=== PATIENT | female | born 1955 | race Caucasian/White ===

== ENCOUNTER 2016-07-26 01:20 | Inpatient (IN) | payer OTHER ==
[~2016-07-26] VITALS: Ht 160 cm; Wt 68.7 kg
[2016-07-26] VITALS (10 sets, daily range): BP systolic 89–127; BP diastolic 50–74; PULSE 69–93; RESP 16–20; TEMP 97.9–98.7; O2SAT 96–100
[2016-07-26] MEDS ORDERED: ASPI81CH37 CHEW (01:35)
[2016-07-26] MEDS ORDERED: PREV30CA11 PO (01:35)
[2016-07-26] MEDS ORDERED: LEXA20TA PO (01:35)
--- NOTE | 2016-07-26 01:42 | PD ---
HPI Chief Complaint: Psychiatric Symptoms Time Seen by Provider: 01:26 Travel History International Travel<30 days: No Contact w/Intl Traveler<30days: No Traveled to known affect area: No History of Present Illness HPI The patient is a 60 year old female who presents to the [facility] emergency department with a history of intentionally overdosing on her husbands morphine approximately an hour and 15 minutes prior to arrival. The patient took 15 mL of the morphine sulfate syrup that was 100 mg per 5 mL. The patient at this time reports feeling relaxed. She denies any nausea or vomiting. She reports feeling itchy but has no rash. She denies taking any other medications in an attempt to overdose. She reports that she does drink usually 2 beers per day and did have her usual 2 beers earlier today. She reports that she had not been considering suicide prior to this evening, however she did this after a fight with her son. She reports that she has also been grieving recently over her had since in May. I review systems the patient does report having some recent increase in her palpitations related to paroxysmal atrial fibrillation. The patient denies any recent fevers, cough, congestion, neck pain, chest pain, shortness of breath, abdominal pain, vomiting, diarrhea, urinary symptoms, or neurologic symptoms. PFSH Past Medical History Narrative Medical The patient's past medical history is significant for paroxysmal atrial fibrillation, hiatal hernia, depression, acid reflux Atrial Fibrillation: Yes (medtronic loop monitor in place) Diminished Hearing: No Hiatal Hernia: Yes Immunizations Current: Yes Influenza Vaccination: Yes Menopausal: Yes : 6 Para: 3 Past Surgical History Narrative Surgical The patient's past surgical history is significant for bilateral shoulder surgery, bilateral sacroiliac joint pending, hysterectomy. Hysterectomy: Yes Social History Alcohol Use: Yes (2 beers per day) Tobacco Use: No Substance Use: No Allergies-Medications (Allergen,Severity, Reaction): Coded Allergies: No Known Allergies (Unverified , 07/26/16) Reported Meds & Prescriptions Reported Meds & Active Scripts Active Reported Prevacid (Lansoprazole) 30 Mg Capdr 30 Mg PO DAILY Aspirin Low Dose (Aspirin) 81 Mg Chew 162 Mg CHEW DAILY Lexapro (Escitalopram Oxalate) 20 Mg Tab 20 Mg PO DAILY Review of Systems Except as stated in HPI: all other systems reviewed are Neg General / Constitutional: No: Fever Eyes: No: Visual changes HENT: No: Headaches Cardiovascular: Positive: Palpitations, No: Chest Pain or Discomfort Respiratory: No: Shortness of Breath Gastrointestinal: No: Abdominal Pain Genitourinary: No: Dysuria Musculoskeletal: No: Pain Skin: No Rash Neurologic: Positive: Weakness (generalized weakness), No: Focal Abnormalities , Coordination Problem, Change in Mentation, Slurred Speech, Sensory Disturbance Psychiatric: Positive: Depression, Suicidal Ideations, Mood Disorder, Substance Abuse, No: Homicidal Ideation Endocrine: No: Polydipsia Hematologic/Lymphatic: No: Easy Bruising Physical Exam Narrative General: The patient is a well-developed well-nourished female in no acute distress. Head and Neck exam: Head is normocephalic atraumatic. Eyes: EOMI, pupils are equal round and reactive to light. The patient's pupils are 2 mm bilaterally. Nose: Midline septum with pink mucous membranes Mouth: Dentition unremarkable. Moist mucus membranes. Posterior oropharynx is not erythematous. No tonsillar hypertrophy. Uvula midline. Airway patent. Neck: No palpable lymphadenopathy. No nuchal rigidity. No thyromegaly. Cardiovascular: Regular rate and rhythm without murmurs, gallops, or rubs. Lungs: Clear to auscultation bilaterally. No wheezes, rhonchi, or rales. Abdomen: Soft, without tenderness to palpation in all 4 quadrants of the abdomen. No guarding, rebound, or rigidity. Normal bowel sounds are audible. Extremities: No clubbing, cyanosis, or edema. 2+ pulses in all 4 extremities. No calf tenderness on palpation. Back: No spinous process tenderness to palpation. No costovertebral angle tenderness to palpation. Neurologic Exam: Cranial nerves 2-12 were intact on exam. Strength is 5/5 in all 4 extremities. No sensory deficits noted. Skin Exam: No rash noted. Intact skin that is warm and dry. Data Data Last Documented VS Vital Signs Date Time Temp Pulse Resp B/P Pulse Ox O2 Delivery O2 Flow Rate FiO2 07/26/16 01:30 98.6 79 16 127/74 97 Room Air Orders Electrocardiogram (07/26/16 01:27) Complete Blood Count With Diff (07/26/16 01:27) Comprehensive Metabolic Panel (07/26/16 01:27) Prothrombin Time / Inr (Pt) (07/26/16 01:27) Act Partial Throm Time (Ptt) (07/26/16 01:27) Urinalysis - C+S If Indicated (07/26/16:27) Chest, Single Ap (07/26/16:27) Blood Glucose (07/26/16:27) Iv Access Insert/Monitor (07/26/16:27) Cath For Specimen (07/26/16:27) Ecg Monitoring (07/26/16:) Oximetry (07/26/16:27) Drug Screen, Random Urine (07/26/16:) Alcohol (Ethanol) (07/26/16:27) Salicylates (Aspirin) (07/26/16:27) Tylenol (Acetaminophen) (07/26/16:27) Psych Screen (07/26/16:) Sodium Chlor 0.9% 1000 Ml Inj (Ns 1000 M (07/26/16 03:15) Diphenhydramine (Benadryl) (07/26/16 03:15) Ice Chips (07/26/16 03:06) Admit Order (Ed Use Only) (07/26/16 03:36) Admit To Inpatient (07/26/16 ) Vital Signs (Adult) Q4H (07/26/16 03:36) Activity Oob With Assistance (07/26/16 03:36) Web Master / Telemetry .CONTINUOUS (07/26/16 03:36) Diet Npo (07/26/16 Breakfast) Sodium Chlor 0.9% 1000 Ml Inj (Ns 1000 M (07/26/16 03:36) Acetaminophen (Tylenol) (07/26/16 03:45) Ondansetron Inj (Zofran Inj) (07/26/16 03:45) Magnesium Hydroxide Liq (Milk Of Magnesi (07/26/16 03:45) Resp Oxygen Pb C Titrat 1-4 L (07/26/16 ) Scd Bilateral/Knee High BECKY.BID (07/26/16 03:36) Kit Bilateral/Knee High BECKY.QSHIFT (07/26/16 03:36) Naloxone Inj (Narcan Inj) (07/26/16 03:45) Inpatient Certification (07/26/16 ) Consult Psychiatry (07/26/16 ) Labs Laboratory Tests Test 07/26/16 07/26/16 01:40 02:25 White Blood Count 5.6 TH/MM3 Red Blood Count 4.03 MIL/MM3 Hemoglobin 12.8 GM/DL Hematocrit 37.2 % Mean Corpuscular Volume 92.4 FL Mean Corpuscular Hemoglobin 31.9 PG Mean Corpuscular Hemoglobin 34.5 % Concent Red Cell Distribution Width 13.5 % Platelet Count 352 TH/MM3 Mean Platelet Volume 8.1 FL Neutrophils (%) (Auto) 51.8 % Lymphocytes (%) (Auto) 39.1 % Monocytes (%) (Auto) 6.5 % Eosinophils (%) (Auto) 1.7 % Basophils (%) (Auto) 0.9 % Neutrophils # (Auto) 2.9 TH/MM3 Lymphocytes # (Auto) 2.2 TH/MM3 Monocytes # (Auto) 0.4 TH/MM3 Eosinophils # (Auto) 0.1 TH/MM3 Basophils # (Auto) 0.0 TH/MM3 CBC Comment DIFF FINAL Differential Comment Prothrombin Time 10.4 SEC Prothromb Time International 0.9 RATIO Ratio Activated Partial 23.8 SEC Thromboplast Time Sodium Level 142 MEQ/L Potassium Level 4.0 MEQ/L Chloride Level 105 MEQ/L Carbon Dioxide Level 24.5 MEQ/L Anion Gap 13 MEQ/L Blood Urea Nitrogen 8 MG/DL Creatinine 0.63 MG/DL Estimat Glomerular Filtration 96 ML/MIN Rate Random Glucose 102 MG/DL Calcium Level 8.8 MG/DL Total Bilirubin 0.2 MG/DL Aspartate Amino Transf 30 U/L (AST/SGOT) Alanine Aminotransferase 24 U/L (ALT/SGPT) Alkaline Phosphatase 68 U/L Total Protein 7.4 GM/DL Albumin 4.2 GM/DL Salicylates Level LESS THAN 1.7 MG/DL Acetaminophen Level LESS THAN 2.0 MCG/ML Ethyl Alcohol Level 61 MG/DL Urine Color COLORLESS Urine Turbidity CLEAR Urine pH 5.5 Urine Specific [place] 1.002 Urine Protein NEG mg/dL Urine Glucose (UA) NEG mg/dL Urine Ketones NEG mg/dL Urine Occult Blood TRACE Urine Nitrite NEG Urine Bilirubin NEG Urine Urobilinogen LESS THAN 2.0 MG/DL Urine Leukocyte Esterase NEG Urine RBC 1 /hpf Urine WBC LESS THAN 1 /hpf Urine Squamous Epithelial <1 /hpf Cells Microscopic Urinalysis Comment CULT NOT INDICATED Urine Opiates Screen POS Urine Barbiturates Screen NEG Urine Amphetamines Screen NEG Urine Benzodiazepines Screen NEG Urine Cocaine Screen NEG Urine Cannabinoids Screen NEG MDM Medical Decision Making Medical Screen Exam Complete: Yes Emergency Medical Condition: Yes Medical Record Reviewed: Yes Interpretation(s) Laboratory Tests Test 07/26/16 07/26/16 01:40 02:25 White Blood Count 5.6 TH/MM3 Red Blood Count 4.03 MIL/MM3 Hemoglobin 12.8 GM/DL Hematocrit 37.2 % Mean Corpuscular Volume 92.4 FL Mean Corpuscular Hemoglobin 31.9 PG Mean Corpuscular Hemoglobin 34.5 % Concent Red Cell Distribution Width 13.5 % Platelet Count 352 TH/MM3 Mean Platelet Volume 8.1 FL Neutrophils (%) (Auto) 51.8 % Lymphocytes (%) (Auto) 39.1 % Monocytes (%) (Auto) 6.5 % Eosinophils (%) (Auto) 1.7 % Basophils (%) (Auto) 0.9 % Neutrophils # (Auto) 2.9 TH/MM3 Lymphocytes # (Auto) 2.2 TH/MM3 Monocytes # (Auto) 0.4 TH/MM3 Eosinophils # (Auto) 0.1 TH/MM3 Basophils # (Auto) 0.0 TH/MM3 CBC Comment DIFF FINAL Differential Comment Prothrombin Time 10.4 SEC Prothromb Time International 0.9 RATIO Ratio Activated Partial 23.8 SEC Thromboplast Time Sodium Level 142 MEQ/L Potassium Level 4.0 MEQ/L Chloride Level 105 MEQ/L Carbon Dioxide Level 24.5 MEQ/L Anion Gap 13 MEQ/L Blood Urea Nitrogen 8 MG/DL Creatinine 0.63 MG/DL Estimat Glomerular Filtration 96 ML/MIN Rate Random Glucose 102 MG/DL Calcium Level 8.8 MG/DL Total Bilirubin 0.2 MG/DL Aspartate Amino Transf 30 U/L (AST/SGOT) Alanine Aminotransferase 24 U/L (ALT/SGPT) Alkaline Phosphatase 68 U/L Total Protein 7.4 GM/DL Albumin 4.2 GM/DL Salicylates Level LESS THAN 1.7 MG/DL Acetaminophen Level LESS THAN 2.0 MCG/ML Ethyl Alcohol Level 61 MG/DL Urine Color COLORLESS Urine Turbidity CLEAR Urine pH 5.5 Urine Specific [place] 1.002 Urine Protein NEG mg/dL Urine Glucose (UA) NEG mg/dL Urine Ketones NEG mg/dL Urine Occult Blood TRACE Urine Nitrite NEG Urine Bilirubin NEG Urine Urobilinogen LESS THAN 2.0 MG/DL Urine Leukocyte Esterase NEG Urine RBC 1 /hpf Urine WBC LESS THAN 1 /hpf Urine Squamous Epithelial <1 /hpf Cells Microscopic Urinalysis Comment CULT NOT INDICATED Urine Opiates Screen POS Urine Barbiturates Screen NEG Urine Amphetamines Screen NEG Urine Benzodiazepines Screen NEG Urine Cocaine Screen NEG Urine Cannabinoids Screen NEG Last Impressions Chest X-Ray 07/26/16 0127 Signed Impressions: Service Date/Time: Tuesday, July 26, 2016 02:07 - CONCLUSION: Consolidation versus atelectasis in the medial left lung base. Marcelo Paulino MD Differential Diagnosis Suicide attempt, versus suicidal gesture, versus substance induced mood disorder , versus grief with suicidal ideations, versus depression Narrative Course During the course of the patients emergency department visit, the patients history, examination, and differential diagnosis were reviewed with the patient. The patient had IV access obtained and blood work sent for analysis. The patient was placed on a front desk monitor with oximetry and blood pressure monitoring. The patient's blood pressure systolic dropped to 84. The patient had an EKG done on arrival. The patient's EKG shows a sinus rhythm heart rate is 72, no acute ST segment changes, T waves are inverted in lead V1. The patient was provided normal saline 1 L IV fluid bolus. The patient was given Benadryl 25 mg by mouth 1 for itching. The patient was given ice chips. The patients laboratory studies were reviewed and remarkable for a CBC that is unremarkable. CMP within normal limits, PT 10.4, PTT 23.8, urinalysis shows trace occult blood, otherwise unremarkable, urinalysis screen is positive for opiates, salicylate less than 1.7, acetaminophen less than 2, alcohol 61. The patient's chest x-ray reveals atelectasis in the left lung base. The patient will be admitted to the intensive care unit for close monitoring regarding respiratory depression and hypotension. The patients results were discussed with the patient, including the plan of care. I explained that further testing and/ or monitoring is indicated based on the patients history, examination, and/ or laboratory findings. Therefore, I recommended admission for additional evaluation. The patient expressed understanding and was agreeable with this plan. The patient was admitted to the hospital in guarded condition and [facility] Physician Communication Physician Communication The patient's case was discussed with Dr. Bustillos who did agree to admit the patient for continued evaluation and treatment at this time. Diagnosis Primary Impression: Suicide attempt by drug ingestion Qualified Code: T50.902A - Suicide attempt by drug ingestion, initial encounter Additional Impression: Depression Qualified Code: F32.9 - Reactive depression Admitting Information Admitting Physician Requests: it Stephanie Young MD Jul 26, 2016 01:42
[2016-07-26 02:03] LABS: AUTOMATED NEUTROPHIL # 2.9 TH/MM3 (1.8-7.7); BASOPHIL % 0.9 % (0.0-2.0); EOSINOPHIL # 0.1 TH/MM3 (0-0.4); EOSINOPHIL % 1.7 % (0.0-4.0); HEMATOCRIT 37.2 % (35.0-46.0); HEMO FLAGS DIFF FINAL; LYMPH % 39.1 % (9.0-44.0); LYMPHOCYTE # 2.2 TH/MM3 (1.0-4.8); MEAN CELL VOLUME 92.4 FL (80.0-100.0); MEAN CORPUSCULAR HEMOGLOBIN 31.9 PG (27.0-34.0); MEAN CORPUSCULAR HGB CONC 34.5 % (32.0-36.0); MONO % 6.5 % (0.0-8.0); NEUT % 51.8 % (16.0-70.0); PLATELET COUNT 352 TH/MM3 (150-450); RED BLOOD COUNT 4.03 MIL/MM3 (4.00-5.30); RED CELL DISTRIBUTION WIDTH 13.5 % (11.6-17.2); WHITE BLOOD COUNT 5.6 TH/MM3 (4.0-11.0)
--- NOTE | 2016-07-26 02:18 | RADRPT ---
EXAM DATE/TIME: 07/26/2016 02:07 [place] COMPARISON: No previous studies available for comparison. INDICATIONS : Syncope. Weakness. MEDICAL HISTORY : None. SURGICAL HISTORY : None. ENCOUNTER: Initial ACUITY: 1 day PAIN SCORE: 6/10 LOCATION: Bilateral chest FINDINGS: Single AP view of the chest. Moderate-sized area of pulmonary consolidation versus atelectasis at the medial left lung base. Lungs are otherwise clear. No evidence of pleural effusion or pneumothorax. C ardiomediastinal silhouette within normal limits. CONCLUSION: Consolidation versus atelectasis in the medial left lung base. Marcelo Paulino MD on July 26, 2016 at 2:14 Board Certified Radiologist. This report was verified electronically.
[2016-07-26 02:20] LABS: APTT (PATIENT) 23.8 SEC (24.3-30.1); INTERNATIONAL NORMALIZED RATIO 0.9 RATIO; PROTHROMBIN TIME - PATIENT 10.4 SEC (9.8-11.6)
[2016-07-26 02:30] LABS: ALKALINE PHOSPHATASE 68 U/L (45-117); TOTAL BILIRUBIN ADULT 0.2 MG/DL (0.2-1.0)
[2016-07-26 02:32] LABS: ALT (GPT) 24 U/L (10-53); ANION GAP 13 MEQ/L (5-15); AST (GOT) 30 U/L (15-37); BICARBONATE 24.5 MEQ/L (21.0-32.0); BLOOD UREA NITROGEN 8 MG/DL (7-18); CHLORIDE 105 MEQ/L (98-107); GLOMERULAR FILTRATION RATE 96 ML/MIN (>89); SODIUM (NA) 142 MEQ/L (136-145)
[2016-07-26 02:38] LABS: ACETAMINOPHEN LESS THAN 2.0 MCG/ML (10.0-30.0)
[2016-07-26 02:47] LABS: BLOOD, URINE TRACE (NEG); GLUCOSE,URINE NEG (NEG); KETONE, URINE NEG (NEG); NITRITE,URINE NEG (NEG); PH, URINE 5.5 (5.0-8.5); SQUAMOUS EPITHELIAL CELL URINE <1 /hpf (0-5); URINE COLOR COLORLESS (YELLW/STRAW)
[2016-07-26 02:48] LABS: COMMENT (UR) CULT NOT INDICATED; CULTURE IF INDICATED CULT NOT INDICATED
[2016-07-26 02:54] LABS: AMPHETAMINE, URINE NEG (NEG); BARBITURATES, URINE NEG (NEG); COCAINE, URINE NEG (NEG)
[2016-07-26] MEDS ORDERED: diphenhydrAMINE HCL 25 MG CAP PO ONE (03:15)
[2016-07-26] MEDS ORDERED: SODIUM CHLOR 0.9% 1000 ML INJ 1,000 ML IV ONE (03:15)
[2016-07-26] MEDS ORDERED: SODIUM CHLOR 0.9% 1000 ML INJ 1,000 ML IV SCH (03:36)
[2016-07-26] MEDS ORDERED: ACETAMINOPHEN 325 MG TAB PO PRN (03:45)
[2016-07-26] MEDS ORDERED: ONDANSETRON HCL 4 MG/2 ML VIAL IVP PRN (03:45)
[2016-07-26] MEDS ORDERED: NALOXONE HCL 0.4 MG/ML AMP IV PRN (03:45)
[2016-07-26] MEDS ORDERED: MAGNESIUM HYDROXIDE SUSP 30 ML CUP PO PRN (03:45)
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
[2016-07-26] MEDS ORDERED: ESCITALOPRAM OXALATE 20 MG TAB PO SCH (17:00)
--- NOTE | 2016-07-26 18:01 | HHI.HP ---
[facility] Service [facility] Primary Care Physician Laine Swenson M.D. Admission Diagnosis Morphine overdose, Suicide Attempt, [place]ino Act Diagnoses: Travel History International Travel<30 Days: No Contact w/Intl Traveler <30 Da: No Traveled to Known Affected Are: No Past Family Social History Allergies: Coded Allergies: No Known Allergies (Unverified , 07/26/16) Physical Exam Vital Signs Vital Signs Date Time Temp Pulse Resp B/P Pulse Ox O2 Delivery O2 Flow Rate FiO2 07/26/16 08:31 96 Nasal Cannula 2.00 07/26/16 08:00 97.9 77 18 101/57 100 07/26/16 06:05 98.6 83 16 116/69 100 07/26/16 06:00 93 07/26/16 03:45 16 07/26/16 03:44 69 16 90/69 96 07/26/16 01:30 98.6 79 16 127/74 97 Room Air Laboratory Laboratory Tests Test 07/26/16 07/26/16 07/26/16 01:40 02:25 06:05 White Blood Count 5.6 Red Blood Count 4.03 Hemoglobin 12.8 Hematocrit 37.2 Mean Corpuscular Volume 92.4 Mean Corpuscular Hemoglobin 31.9 Mean Corpuscular Hemoglobin 34.5 Concent Red Cell Distribution Width 13.5 Platelet Count 352 Mean Platelet Volume 8.1 Neutrophils (%) (Auto) 51.8 Lymphocytes (%) (Auto) 39.1 Monocytes (%) (Auto) 6.5 Eosinophils (%) (Auto) 1.7 Basophils (%) (Auto) 0.9 Neutrophils # (Auto) 2.9 Lymphocytes # (Auto) 2.2 Monocytes # (Auto) 0.4 Eosinophils # (Auto) 0.1 Basophils # (Auto) 0.0 CBC Comment DIFF FINAL Differential Comment Prothrombin Time 10.4 Prothromb Time International 0.9 Ratio Activated Partial 23.8 Thromboplast Time Sodium Level 142 Potassium Level 4.0 Chloride Level 105 Carbon Dioxide Level 24.5 Anion Gap 13 Blood Urea Nitrogen 8 Creatinine 0.63 Estimat Glomerular Filtration 96 Rate Random Glucose 102 Calcium Level 8.8 Total Bilirubin 0.2 Aspartate Amino Transf 30 (AST/SGOT) Alanine Aminotransferase 24 (ALT/SGPT) Alkaline Phosphatase 68 Total Protein 7.4 Albumin 4.2 Salicylates Level LESS THAN 1.7 Acetaminophen Level LESS THAN 2.0 Ethyl Alcohol Level 61 Urine Color COLORLESS Urine Turbidity CLEAR Urine pH 5.5 Urine Specific [place] 1.002 Urine Protein NEG Urine Glucose (UA) NEG Urine Ketones NEG Urine Occult Blood TRACE Urine Nitrite NEG Urine Bilirubin NEG Urine Urobilinogen LESS THAN 2.0 Urine Leukocyte Esterase NEG Urine RBC 1 Urine WBC LESS THAN 1 Urine Squamous Epithelial <1 Cells Microscopic Urinalysis Comment CULT NOT INDICATED Urine Opiates Screen POS Urine Barbiturates Screen NEG Urine Amphetamines Screen NEG Urine Benzodiazepines Screen NEG Urine Cocaine Screen NEG Urine Cannabinoids Screen NEG Nasal Screen MRSA (PCR) NEGATIVE Result Diagram: 07/26/16 0140 07/26/16 0140 Assessment and Plan Assessment and Plan dictated, [id number] Raquel Trivedi Jul 26, 2016 18:01
--- NOTE | 2016-07-26 18:38 | HHI.PR ---
Objective Objective Results - Vital Signs Date Time Temp Pulse Resp B/P Pulse Ox O2 Delivery O2 Flow Rate FiO2 07/26/16 08:31 96 Nasal Cannula 2.00 07/26/16 08:00 97.9 77 18 101/57 100 07/26/16 06:05 98.6 83 16 116/69 100 07/26/16 06:00 93 07/26/16 03:45 16 07/26/16 03:44 69 16 90/69 96 07/26/16 01:30 98.6 79 16 127/74 97 Room Air I/O 07/25/16 07/25/16 07/25/16 07/26/16 07/26/16 07/26/16 07:00 15:00 23:00 07:00 15:00 23:00 Intake Total 0 ml Output Total 0 ml Balance 0 ml Intake Oral 0 ml Output Urine Total 0 ml Result Diagram: 07/26/16 0140 07/26/16 0140 Other Results Laboratory Tests Test 07/26/16 07/26/16 07/26/16 01:40 02:25 06:05 White Blood Count 5.6 Red Blood Count 4.03 Hemoglobin 12.8 Hematocrit 37.2 Mean Corpuscular Volume 92.4 Mean Corpuscular Hemoglobin 31.9 Mean Corpuscular Hemoglobin 34.5 Concent Red Cell Distribution Width 13.5 Platelet Count 352 Mean Platelet Volume 8.1 Neutrophils (%) (Auto) 51.8 Lymphocytes (%) (Auto) 39.1 Monocytes (%) (Auto) 6.5 Eosinophils (%) (Auto) 1.7 Basophils (%) (Auto) 0.9 Neutrophils # (Auto) 2.9 Lymphocytes # (Auto) 2.2 Monocytes # (Auto) 0.4 Eosinophils # (Auto) 0.1 Basophils # (Auto) 0.0 CBC Comment DIFF FINAL Differential Comment Prothrombin Time 10.4 Prothromb Time International 0.9 Ratio Activated Partial 23.8 Thromboplast Time Sodium Level 142 Potassium Level 4.0 Chloride Level 105 Carbon Dioxide Level 24.5 Anion Gap 13 Blood Urea Nitrogen 8 Creatinine 0.63 Estimat Glomerular Filtration 96 Rate Random Glucose 102 Calcium Level 8.8 Total Bilirubin 0.2 Aspartate Amino Transf 30 (AST/SGOT) Alanine Aminotransferase 24 (ALT/SGPT) Alkaline Phosphatase 68 Total Protein 7.4 Albumin 4.2 Salicylates Level LESS THAN 1.7 Acetaminophen Level LESS THAN 2.0 Ethyl Alcohol Level 61 Urine Color COLORLESS Urine Turbidity CLEAR Urine pH 5.5 Urine Specific [place] 1.002 Urine Protein NEG Urine Glucose (UA) NEG Urine Ketones NEG Urine Occult Blood TRACE Urine Nitrite NEG Urine Bilirubin NEG Urine Urobilinogen LESS THAN 2.0 Urine Leukocyte Esterase NEG Urine RBC 1 Urine WBC LESS THAN 1 Urine Squamous Epithelial <1 Cells Microscopic Urinalysis Comment CULT NOT INDICATED Urine Opiates Screen POS Urine Barbiturates Screen NEG Urine Amphetamines Screen NEG Urine Benzodiazepines Screen NEG Urine Cocaine Screen NEG Urine Cannabinoids Screen NEG Nasal Screen MRSA (PCR) NEGATIVE Physical Exam Physical Exam pt is seen & Examined d/w PT d./w Raquel s/p attempted suicide Morphine OD hx depression hx Ch A fib GERD BA psych consult see H&P by Raquel see orders will f/u Evelio Gonzalez MD Jul 26, 2016 18:37
--- NOTE | 2016-07-26 19:52 | EKG ---
Date Performed: 07/26/2016 Time Performed: 02:11:57 PTAGE: 60 years EKG: Sinus rhythm NORMAL ECG PREVIOUS TRACING : 09/05/2004 04.33 Compared to prior tracing no significant change DOCTOR: Gloria Kahn Interpretating Date/Time 07/26/2016 19:51:30
[2016-07-26] MEDS: PANTOPRAZOLE SOD 20 MG DELAYED RELEASE TAB PO SCH (23:09)
[2016-07-27] VITALS: BP 85/46; PULSE 80; PULSE 81; RESP 16; TEMP 98; O2SAT 96
[2016-07-27 01:00] VITALS: BP 115/59
[2016-07-27 02:00] VITALS: PULSE 80
[2016-07-27 04:00] VITALS: BP 113/63; PULSE 70; PULSE 80; RESP 20; O2SAT 96
[2016-07-27 06:00] VITALS: PULSE 80
[2016-07-27 08:00] VITALS: PULSE 80; PULSE 86; PULSE 88
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
[2016-07-27] MEDS: PANTOPRAZOLE SOD 20 MG DELAYED RELEASE TAB PO SCH (08:53)
--- NOTE | 2016-07-27 10:01 | HHI.PR ---
Subjective History of Present Illness upset , wants to go home "they dont let me use phone / I cant watch TV , I dont have privacy ".... "Just get me out of here " no N/V good appetite No abd pain No CP or SOB No headache NO fever or chills denies Suicidal ideation. offers no other c/o Vitals/Results Intake & Output 07/26/16 07/26/16 07/27/16 15:00 23:00 07:00 Intake Total 2687 ml 950 ml Output Total 1500 ml 1500 ml Balance 1187 ml -550 ml Intake Oral 970 ml 250 ml IV Total 1717 ml 700 ml Output Urine Total 1500 ml 1500 ml Stool Total 0 ml # Voids 5 Vital Signs Vital Signs Date Time Temp Pulse Resp B/P Pulse Ox O2 Delivery O2 Flow Rate FiO2 07/27/16 08:00 88 07/27/16 06:00 80 07/27/16 04:00 80 07/27/16 04:00 70 20 113/63 96 07/27/16 02:00 80 07/27/16 01:00 115/59 07/27/16 00:00 81 07/27/16 00:00 98.0 80 16 85/46 96 07/26/16 22:00 82 07/26/16 20:00 98.2 81 20 89/50 100 07/26/16 20:00 89 07/26/16 16:00 98.7 72 16 103/64 100 07/26/16 12:00 98.0 75 16 95/52 100 CBC/BMP: 07/26/16 0140 07/26/16 0140 Physical Exam General General Appearance: No Acute Distress, Comfortable Eyes Eye Exam: Pupils Equal, Sclera White Ears & Nose Ears & Nose Exam: Nasal Mucosa [place] Throat Throat Exam: Oral Mucosa [place] & Moist Neck Neck Exam: Neck Supple, Trachea Midline Pulmonary Resp Exam: Clear Bilaterally, Breath Sounds Equal Cardiology CV Exam: Regular, Normal Sinus Rhythm Gastrointestinal/Abdomen GI Exam: Soft, Non-Tender, Bowel Sounds Present Integumentary Skin Exam: Warm, Dry Extremeties Extremities Exam: No Edema, Pedal Pulses Palpable Neurologic Neuro Exam: Alert, Awake, Oriented, Speech Clear, Moving All Extremities Psychiatric Psych Exam: Appropriate Responses PUD Prophylasis PUD Prophylaxis: Protonix Assessment/Plan Assessment/Plan ASSESSMENT s/p attempted suicide Morphine OD ETOH use Hx depression Hx paroxysmal A Fib, currently in SR PLAN clinically stable cont lexapro PPI asa medically stable for tx to psych see Orders see MRS d/w PT d/w Evelio Hogue MD Jul 27, 2016 10:01
--- NOTE | 2016-07-27 10:11 | HHI.PR ---
Subjective Subjective Remarks Alert Anxious Talkative Really upset because she doesn't have her telephone Review of Systems Constitutional Constitutional Remarks 10 point ROS done positives noted are some agitation and anxiety over her current condition. Other systems negative or unremarkable Psychiatric Psychiatric: Agitation, Anxiety Vitals/Results Intake & Output 07/26/16 07/26/16 07/27/16 15:00 23:00 07:00 Intake Total 2687 ml 950 ml Output Total 1500 ml 1500 ml Balance 1187 ml -550 ml Intake Oral 970 ml 250 ml IV Total 1717 ml 700 ml Output Urine Total 1500 ml 1500 ml Stool Total 0 ml # Voids 5 Vital Signs Vital Signs Date Time Temp Pulse Resp B/P Pulse Ox O2 Delivery O2 Flow Rate FiO2 07/27/16 08:00 88 07/27/16 06:00 80 07/27/16 04:00 80 07/27/16 04:00 70 20 113/63 96 07/27/16 02:00 80 07/27/16 01:00 115/59 07/27/16 00:00 81 07/27/16 00:00 98.0 80 16 85/46 96 07/26/16 22:00 82 07/26/16 20:00 98.2 81 20 89/50 100 07/26/16 20:00 89 07/26/16 16:00 98.7 72 16 103/64 100 07/26/16 12:00 98.0 75 16 95/52 100 CBC/BMP: 07/26/16 0140 07/26/16 0140 Imaging Remarks Last Impressions Chest X-Ray 07/26/16 0127 Signed Impressions: Service Date/Time: Tuesday, July 26, 2016 02:07 - CONCLUSION: Consolidation versus atelectasis in the medial left lung base. Marcelo Paulino MD Current Medications Active Medications Escitalopram Oxalate (Lexapro) 20 mg DAILY PO Last administered on 07/27/16 08: 53; Admin Dose 20 MG; Start 07/26/16 at 17:00 Pantoprazole Sodium (Protonix) 20 mg BID PO Last administered on 07/27/16 08:53 ; Admin Dose 20 MG; Start 07/26/16 at 23:00 Physical Exam General General Appearance: No Acute Distress, Comfortable Eyes Eye Exam: Pupils Equal, Sclera [place] & Nose Ears & Nose Exam: Nasal Mucosa [place] Throat Throat Exam: Oral Mucosa [place] & Moist Neck Neck Exam: Neck Supple, Trachea Midline Pulmonary Resp Exam: Clear Bilaterally, Breath Sounds Equal Cardiology CV Exam: Regular, Normal Sinus Rhythm Gastrointestinal/Abdomen GI Exam: Soft, Non-Tender, Bowel Sounds Present Integumentary Skin Exam: Warm, Dry Extremeties Extremities Exam: No Edema, Pedal Pulses Palpable Neurologic Neuro Exam: Alert, Awake, Oriented, Speech Clear, Moving All Extremities Neuro Remarks Anxious borderline agitated Psychiatric Psych Exam: Appropriate Responses PUD Prophylasis PUD Prophylaxis: Protonix Assessment/Plan Assessment/Plan 1. Suicide attempt by drug ingestion. 2. Adjustment disorder with depressed mood. 3. Anxiety disorder. 4. Atrial fibrillation. The patient has Medtronic loop monitor in place. 5. GERD. monitor vital signs at least every 4 hours, keep her on the ECG monitor, SCDs and TEDs for DVT prophylaxis. O2 p.r.n. consult psychiatry , appreciate, plan to [facility]. medically stable she will transfer to medical psych for further evaluation and treatment. Raquel Trivedi Jul 27, 2016 10:11
[2016-07-28] MEDS ORDERED: TRAZ50TA12 PO (09:30)
[2016-07-28] MEDS ORDERED: ESCI20TA PO (09:30)
[2016-07-28] MEDS ORDERED: PANT40TA3 PO (09:30)
== END 2016-07-27 18:40 | DRG 918 ==
LOC: NEPC 01:20 → NEDA 03:38 → HIME 05:50
PROVIDERS: ADMIT Specialist; ATTEND Specialist
DX: T40.2X2A Poisoning by other opioids, intentional self-harm, initial encounter (principal); I48.0 Paroxysmal atrial fibrillation; F41.9 Anxiety disorder, unspecified; K21.9 Gastro-esophageal reflux disease without esophagitis; K44.9 Diaphragmatic hernia without obstruction or gangrene; F43.21 Adjustment disorder with depressed mood; Y92.009 Unspecified place in unspecified non-institutional (private) residence as the place of occurrence of the external cause
CPT/HCPCS: 71010; 80053; 80307; 81001; 85025; 85610; 85730; 87641; 93005; J7030

== ENCOUNTER 2016-07-27 14:30 | Inpatient (IN) | payer OTHER ==
[~2016-07-27] VITALS: Ht 160 cm; Wt 60.2 kg
[~2016-07-27 14:30] MED LIST: ASPI81CH37 CHEW; LEXA20TA PO; PREV30CA11 PO
[2016-07-27 18:59] VITALS: BP 131/59; PULSE 78; RESP 14; TEMP 98.7; O2SAT 94
[2016-07-27] MEDS ORDERED: LORazepam 2 MG/ML VIAL IM PRN (22:00)
[2016-07-27] MEDS ORDERED: MAGNESIUM HYDROXIDE SUSP 30 ML CUP PO PRN (22:00)
[2016-07-27] MEDS ORDERED: ALUMINUM/MAGNESIUM/SIMETH 30 ML CUP PO PRN (22:00)
[2016-07-27] MEDS ORDERED: ACETAMINOPHEN 325 MG TAB PO PRN (22:00)
[2016-07-27] MEDS ORDERED: LORazepam 1 MG TAB PO PRN (22:00)
[2016-07-27] MEDS ORDERED: traZODone HCL 100 MG TAB PO SCH (22:00)
[2016-07-28 06:07] VITALS: BP 138/67; PULSE 65; RESP 16; TEMP 98.1; O2SAT 96
[2016-07-28] MEDS ORDERED: ESCITALOPRAM OXALATE 20 MG TAB PO SCH (09:00)
[2016-07-28] MEDS ORDERED: ASPIRIN EC 81 MG TABEC PO SCH (09:00)
[2016-07-28] MEDS ORDERED: NICOTINE 21 MG/24 HR PATCH T-DERMAL SCH (09:00)
[2016-07-28] MEDS ORDERED: PANTOPRAZOLE SOD 40 MG DELAYED RELEASE TAB PO SCH (09:00)
[2016-07-28] MEDS ORDERED: TRAZ50TA12 PO (09:30)
[2016-07-28] MEDS ORDERED: PANT40TA3 PO (09:30)
[2016-07-28] MEDS ORDERED: ESCI20TA PO (09:30)
--- NOTE | 2016-07-28 09:38 | HHI.DS ---
Psychiatry Discharge Summary Inpatient Psychiatric care?: Yes Advance Directive: No Reason Not Provided: none available Mental Health AdvanceDirective: No Health Care Proxy: No Admission Admission Date Jul 27, 2016 at 14:30 Admission Diagnosis: (1) Adjustment disorder with depressed mood ICD Code: F43.21 Brief History Please refer to H&P from today Tobacco Use In Past 30 Days: No Tobacco Past 30 Days Alcohol Use: 2-3 Times Per Week Hospital Course Please refer to H&P from today Results Blood Pressure 138 / 67 Vital Signs Date Time Temp Pulse Resp B/P Pulse Ox O2 Delivery O2 Flow Rate FiO2 07/28/16 06:07 98.1 65 16 138/67 96 Reviewed Summary of Procedures none Imaging none Pending results at discharge: No Medications # of Antipsychotic meds at D/C: 0 Approp Antipsych med options 1 - Minimum of three failed multiple trials of monotherapy. 2 - Documented plan to taper to monotherapy due to previous use of multiple meds OR cross-taper in progress at D/C. 3 - Documentation of augmentation of Clozapine. 4 - Justification other than those listed in allowable values 1-3, document here : Discharge Discharge Date: Jul 28, 2016 Discharge Diagnosis: (1) Borderline personality disorder Diagnosis: Principal ICD Code: F60.3 Mental Status Exam at Disch woman, age appearing, [facility], good hygiene, she is calm and cooperative, a little bit irritable, her speech is fluent and spontaneous. Her mood is "fine", affect is irritable. Thought process is linear, coherent and relevant. Thought content is devoid of SI/HI/VH/AH, delusions and paranoia. Insight, impulse control, judgment are fair. Memory is intact. Pt Condition on Discharge: Stable Discharge Disposition: Discharge Home Discharge Instructions Diet Instructions: As Tolerated, No Restrictions Activities you can perform: Regular-No Restrictions Scheduled Appointment: Discharge Time > 30 minutes Discharge/Advance Care Plan Health Problems: (1) Adjustment disorder with depressed mood Goals to promote your health * To prevent worsening of your condition and complications * To maintain your health at the optimal level Directions to meet your goals Take your medications as prescribed Follow your dietary instruction Follow activity as directed Keep your appointments as scheduled Take your immunizations and boosters as scheduled If your symptoms worsen call your PCP, if no PCP go to Urgent Care Center or Emergency Room For 04/12 questions related to your inpatient stay or results of tests pending at discharge, please contact Dr. Tj Mitchell at Smoking is Dangerous to Your Health. Avoid second hand smoking Tj Mitchell MD Jul 28, 2016 09:38
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
--- NOTE | 2016-07-28 13:27 | HHI.PR ---
Subjective Remarks we are asked to evaluate pt & clear her for d/c medically pt known to us Feels well eager to go home No N/V No abd pain NO headache No CP or SOB NO palpitations no depression or suicidal ideations offers no other c/o Objective Objective Results - Vital Signs Date Time Temp Pulse Resp B/P Pulse Ox O2 Delivery O2 Flow Rate FiO2 07/28/16 06:07 98.1 65 16 138/67 96 07/27/16 18:59 98.7 78 14 131/59 94 I/O 07/27/16 07/27/16 07/27/16 07/28/16 07/28/16 07/28/16 07:00 15:00 23:00 07:00 15:00 23:00 Intake Total 600 ml 0 ml 240 ml Balance 600 ml 0 ml 240 ml Intake Oral 600 ml 0 ml 240 ml # Voids 1 3 # Bowel Movements 0 0 Physical Exam Physical Exam EOMI OLEKSANDR Neck Supple ,No Bruit CVS S1 , S2 audible , RRR RESP Lungs are CTA , No crackle sor Rhonchi GI Abd soft , NT +ve BS Ext No Edema Neurology , Ax0x3 A/P Assessment and Plan ASSESSMENT s/p Morphine OD s/p attempted Suicide Hx Paroxysmal A fib ,currently in SR Hx Depression PLAN pt is in SR CHADS2 score =0 , baby ASA daily cont Antidepressants cont current tx cleared by psych medically stable for d/c d/c home today see Orders f/u pcp d/w PT Evelio Gonzalez MD Jul 28, 2016 13:27
--- NOTE | 2016-07-28 17:16 | HHI.PR ---
Subjective Remarks sitting up in bed alert, oriented, talkative no anxiety Objective Objective Results - Vital Signs Date Time Temp Pulse Resp B/P Pulse Ox O2 Delivery O2 Flow Rate FiO2 07/28/16 06:07 98.1 65 16 138/67 96 07/27/16 18:59 98.7 78 14 131/59 94 I/O 07/27/16 07/27/16 07/27/16 07/28/16 07/28/16 07/28/16 07:00 15:00 23:00 07:00 15:00 23:00 Intake Total 600 ml 0 ml 840 ml Balance 600 ml 0 ml 840 ml Intake Oral 600 ml 0 ml 840 ml # Voids 1 3 3 # Bowel Movements 0 0 1 ROS General: Other (8 point ROS done, negative systems, anxiety controlled.) Physical Exam Physical Exam PHYSICAL EXAMINATION GENERAL: This is a well-developed, well-nourished female who appears to be in no acute distress. She is alert and awake HEAD: Normocephalic without any lesion or mass noted. Facial features appear symmetric. OROPHARYNGEAL: Oropharynx without erythema or edema. NECK: Supple. No nuchal rigidity or lymphadenopathy. Trachea midline without deviation. CARDIAC: Regular rhythm, regular rate, S1 and S2 are heard. LUNGS: Clear to auscultation bilaterally. ABDOMEN: Soft, nontender, no organomegaly or masses. Bowel sounds are heard in all four quadrants. No rebound. No guarding. EXTREMITIES: no edema. Pulses equal bilateral. NEUROLOGICAL: Patient mood and affect appropriate. No focal deficit SKIN:Warm and moist Objective Remarks Im ready to go home. A/P Assessment and Plan Adjustment disorder with depressed mood Anxiety Borderline personality disorder intentional Morphine OD, with suicide intentions. Patient stablized in the ICU setting, then transtioned to med psy floor. Aware of her feelings, and wants to get back to her home and start living again. Issues with son, who is out of her home now. Supportive care, assessment complete. Stable from a medical standpoint. Discharge Discussed With: Nurse, Family (patient ), Other (Dr. Gonzalez, patient seen on her behalf.) Raquel Trivedi Jul 28, 2016 17:15
[2016-07-28] MEDS ORDERED: REMOVE OLD NICOTINE PATCH T-DERMAL SCH (21:00)
== END 2016-07-28 16:15 | disposition home or self-care (01) | DRG 881 ==
LOC: H4EA 14:30
PROVIDERS: ADMIT Psychiatry & Neurology Psychiatry; ATTEND Psychiatry & Neurology Psychiatry
DX: F43.21 Adjustment disorder with depressed mood (principal); I48.0 Paroxysmal atrial fibrillation; F41.9 Anxiety disorder, unspecified; F60.3 Borderline personality disorder; T40.2X1A Poisoning by other opioids, accidental (unintentional), initial encounter; Y92.009 Unspecified place in unspecified non-institutional (private) residence as the place of occurrence of the external cause